=== PATIENT | female | born 1995 | race Caucasian/White ===

== ENCOUNTER 2017-07-17 13:00 | Emergency (ER) | payer OTHER, MEDICAID ==
--- NOTE | 2017-07-17 14:27 | ED ---
Respiratory - HPI Summary HPI Summary: 21 y/o PMHX Cerebral Palsy female presents to the urgent care accompany by mother c/o nasal congestion with sinus pain and pressure and b/L ear pain for the past 3 days. Pt states dry cough and nasal congestion has a clear nasal discharge, with mild ACE. Left ear pain is 7/10. Pt has been taking Dayquil to alleviate symptoms. Pt denies fever, SOB, chest pain, N/V/D. - History of Current Complaint Stated Complaint: COL SYMPTOMS Time Seen by Provider: 07/17/17 14:16 Hx Obtained From: Patient Onset/Duration: Gradual Onset, Lasting Days - 3 days, Still Present Timing: Constant Initial Severity: Mild Current Severity: Moderate Pain Intensity: 7 - left ear pain Character: Cough (Nonproductive) Sputum Amount: None Aggravating Factor(s): URI Alleviating Factor(s): OTC Medications Associated Signs and Symptoms: Sinus Infection - sinus tenderness - Risk Factors Status Asthmaticus Risk Factors: Negative Pulmonary Embolism Risk Factors: Negative Cardiac Risk Factors: Negative Tuberculosis Risk Factors: Negative - Allergy/Home Medications Allergies/Adverse Reactions: Allergies Allergy/AdvReac Type Severity Reaction Status Date / Time No Known Allergies Allergy Verified 07/17/17 15:00 PMH/Surg Hx/FS Hx/Imm Hx Previously Healthy: Yes Respiratory History: Reports: Hx Asthma Neurological History: Reports: Other Neuro Impairments/Disorders - Cerebral Palsy - Surgical History Surgery Procedure, Year, and Place: 15: eyes, oral, R hip; L knee; t/a; ear tubes; Botox inj in b/l legs Infectious Disease History: Denies: History Other Infectious Disease - Family History Known Family History: Positive: None - Mother denies any FMHX - Social History Occupation: Student Lives: With Family Alcohol Use: None Substance Use Type: Reports: None Smoking Status (MU): Never Smoked Tobacco Review of Systems Constitutional: Negative Eyes: Negative Positive: Ear Ache - LF ear pain, Nasal Discharge - clear discharge, Other - sinus pressure and pain Cardiovascular: Negative Positive: Cough - dry Gastrointestinal: Negative Genitourinary: Negative Musculoskeletal: Negative Skin: Negative Neurological: Negative Psychological: Normal All Other Systems Reviewed And Are Negative: Yes Physical Exam Triage Information Reviewed: Yes Vital Signs Reviewed: Yes Appearance: Positive: Well-Appearing, No Pain Distress, Well-Nourished, Obese Skin: Positive: Warm, Skin Color Reflects Adequate Perfusion, Dry Head/Face: Positive: Normal Head/Face Inspection Eyes: Positive: Normal, EOMI, STACIA, Conjunctiva Clear ENT: Positive: Normal ENT inspection, Hearing grossly normal, Pharynx normal, Nasal congestion, Nasal drainage - clear, TMs normal - RT external ear canal clear and RT TM WNL. LF external ear canal wit erythema and yellowish ear discharge, Pinna tenderness., Other - B/L maxillary and frontal sinusis tender to percussion Neck: Positive: Supple, Nontender, No Lymphadenopathy Respiratory/Lung Sounds: Positive: Clear to Auscultation, Breath Sounds Present Cardiovascular: Positive: Normal, RRR, Pulses are Symmetrical in both Upper and Lower Extremities, S1, S2 Abdomen Description: Positive: Nontender, No Organomegaly, Soft. Negative: CVA Tenderness (R), CVA Tenderness (L) Bowel Sounds: Positive: Present Musculoskeletal: Positive: Normal, Strength/ROM Intact Neurological: Positive: Normal, Sensory/Motor Intact, Alert, Oriented to Person Place, Time, CN Intact II-III, Reflexes Intact Psychiatric: Positive: Normal Disposition - Course Course Of Treatment: 21 y/o PMHX Cerebral Palsy female presents to the urgent care accompany by mother c/o nasal congestion with sinus pain and pressure and b /L ear pain for the past 3 days. Pt states dry cough and nasal congestion has a clear nasal discharge, with mild ACE. Left ear pain is 7/10. Pt has been taking Dayquil to alleviate symptoms. Pt denies fever, SOB, chest pain, N/V/D. Hx obatined. Pt with acute sinusistis and acute left otitis externa on examination. Pt Rx Cortisporin otic drops. Ibuprofen PO after meals for pain. Flonase nasal spray and saline drops to clear sinusis. Pt's BP elevated today w/ o Hx of HTN. Mother and Pt advised to decrease salt in her diet, monitor her BP , if it continues to be elevated please f/u with your PCP for further management.. Also, advised if symptoms do not improve or worsen to return to the urgent care or f/u with PCP for further evaluation and treatment. Pt understood jinny greed with plan of care. - Differential Dx - Cardiopulmonary Differential Diagnoses - Cardiopulmonary: Bronchitis, Influenza, Laryngitis, Other - sinusitis, URI, otitis media, otitis externa. - Diagnoses Provider Diagnoses: Otitis externa in other diseases classified elsewhere, left ear, Sinusitis, elevated blood pressure w/o Hx of HTN Discharge - Discharge Plan Condition: Stable Disposition: HOME Prescriptions: Albuterol HFA INHALER* [Ventolin HFA Inhaler*] 2 puff INH Q4H PRN #1 mdi PRN Reason: Shortness Of Breath Fluticasone NASAL SPRAY 50MCG* [Flonase NASAL SPRAY 50MCG*] 2 spray BOTH NARES DAILY #1 btl Ibuprofen TAB* [Motrin TAB* 800 MG] 800 mg PO Q6H #20 tab Neomyc/Polym/HC 1% OTIC SUSP* [Cortisporin Otic Susp 1%*] 4 drop LEFT EAR TID # 1 btl Patient Education Materials: Sinusitis (ED), Otitis Externa (ED), Low Sodium Diet (ED) Referrals: Layton Lopez [Primary Care Provider] - If Needed Additional Instructions: 1- Please apply Cortisporin otic drops as directed . 2-Please take ibuprofen PO q6-8hrs prn as instructed after meals to alleviate pain and swelling. 3-Use the Flonase nasal spray and the saline spray as directed to clear your sinuses. 4-If symptoms do not improve or worsen please return to the urgent care or f/u with your PCP for further evaluation and treatment. 5- Your BP today is elevated, please decrease salt in your diet, monitor your BP , if it continues to be elevated please f/y with your PCP for further management.
[2017-07-17 15:00] VITALS: BP 146/96
== END 2017-07-17 15:13 | disposition home or self-care (01) ==
LOC: UCCORT 13:00
DX: H60.8X2 Other otitis externa, left ear (principal); J32.9 Chronic sinusitis, unspecified; R03.0 Elevated blood-pressure reading, without diagnosis of hypertension; J45.909 Unspecified asthma, uncomplicated
CPT/HCPCS: 99212; G0463